=== PATIENT | female | born 1965 | race Caucasian/White ===

== ENCOUNTER 2021-04-20 08:16 | Outpatient (CLI) | payer OTHER, SELFPAY ==
--- NOTE | ~2021-04-20 | MR_ITS ---
EXAMINATION: MR brain/brain stem wo con EXAM DATE: 04/20/2021 09:00 INDICATION: Severe vertigo and headaches for 3 weeks. TECHNIQUE: Magnetic resonance imaging (MRI) of the brain/brain stem obtained without contrast. Sagitt al T1, axial diffusion, gradient echo (T2*), T1, T2, FLAIR sequences obtained. There is no prior st udy for comparison. FINDINGS: There are no areas of restricted diffusion to suggest acute infarction. There is no acute hemorrhage seen on the T2*, a hemosiderin sensitive sequence. 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 There is mild microangiopathy. No intraparenchymal brain mass. The ventricles are normal in si ze. There are no extra-axial collections. Flow voids are seen in the cerebral arteries on the T2-we ighted sequences consistent with their expected patency. The orbits are unremarkable. Soft tissue i s unremarkable. There is mild to moderate right ethmoid and sphenoid sinus mucoperiosteal thickenin g. No sinus air-fluid levels or evidence of mastoid fluid. Posterior fossa is unremarkable. IMPRESSION: 1. Mild microangiopathy. 2. Mild to moderate right ethmoid and sphenoid mucoperiosteal thickening. 3. No acute findings. Reviewed, dictated and finalized at location A.
== END 2021-04-20 08:17 | disposition home or self-care (01) ==
LOC: CHSIMG 08:20
PROVIDERS: PCP Family Medicine; Visit Provider Family Medicine
DX: R42 Dizziness and giddiness (principal)
CPT/HCPCS: 70551